=== PATIENT | male | born 1980 | race Hispanic/Latino ===

== ENCOUNTER 2019-09-18 20:29 | Emergency (ER) | payer BC ==
[2019-09-18 20:40] VITALS: BP 142/88
[2019-09-18] MEDS ORDERED: CLINDAMYCIN 150 MG/ML VIAL 6 ML IM STA (21:23)
--- NOTE | 2019-09-18 21:36 | Emergency Department Report ---
- General Chief complaint: Extremity Injury, Upper Stated complaint: LEFT ELBOW RED Time Seen by Provider: 09/18/19 21:15 Source: patient Mode of arrival: Ambulatory Limitations: No Limitations - History of Present Illness Initial comments: 38-year-old male chronic IV drug use presents emerge department complaint planing of swelling pain and redness to his left arm again after injecting meth about 3 to 4 days ago. States that this is the first time he has had in the post injection reaction in the form of cellulitis or an abscess and has a reemergence after restarting utilization of his IV drugs 3 days ago. States has been in and out of treatment facilities all across the [facility] but unable to refrain from from the drug use. Currently has swelling redness and pain to the left antecubital fossa and pain is worse with palpation and range of motion there is no fever chills or sweats no chest pain or palpitation no shortness of breath numbness or tingling to his fingers and he does not have suspicion for any retained foreign bodies Quality: dull Consistency: constant Improves with: none Associated symptoms: denies other symptoms - Related Data Previous Rx's Medication Instructions Recorded Last Taken Type Clindamycin [Clindamycin CAP] 150 mg PO Q6HR #40 capsule 09/18/19 Unknown Rx Allergies Allergy/AdvReac Type Severity Reaction Status Date / Time No Known Allergies Allergy Unverified 09/18/19 20:40 Abscess Boil HPI - HPI Chief Complaint: Extremity Injury, Upper Stated Complaint: LEFT ELBOW RED Time Seen by Provider: 09/18/19 21:15 Home Medications: Previous Rx's Medication Instructions Recorded Last Taken Type Clindamycin [Clindamycin CAP] 150 mg PO Q6HR #40 capsule 09/18/19 Unknown Rx Allergies/Adverse Reactions: Allergies Allergy/AdvReac Type Severity Reaction Status Date / Time No Known Allergies Allergy Unverified 09/18/19 20:40 ED Review of Systems ROS: Stated complaint: LEFT ELBOW RED Other details as noted in HPI Comment: All other systems reviewed and negative ED Past Medical Hx - Past Medical History Previous Medical History?: No - Surgical History Past Surgical History?: No - Social History Smoking Status: Never Smoker Substance Use Type: Methamphetamines - Medications Home Medications: Home Medications Medication Instructions Recorded Confirmed Last Taken Type Clindamycin [Clindamycin CAP] 150 mg PO Q6HR #40 capsule 09/18/19 Unknown Rx ED Physical Exam - General Limitations: No Limitations General appearance: alert, in no apparent distress - Head Head exam: Present: atraumatic, normocephalic - Eye Eye exam: Present: normal appearance - ENT ENT exam: Present: mucous membranes moist - Neck Neck exam: Present: normal inspection, tenderness, full ROM - Respiratory Respiratory exam: Present: normal lung sounds bilaterally. Absent: respiratory distress - Cardiovascular Cardiovascular Exam: Present: regular rate, normal rhythm. Absent: systolic murmur, diastolic murmur, rubs, gallop - GI/Abdominal GI/Abdominal exam: Present: soft, normal bowel sounds - Rectal Rectal exam: Present: deferred - Extremities Exam Extremities exam: Present: normal inspection, tenderness, normal capillary refill - Expanded Upper Extremity Exam Left Elbow exam: Present: tenderness, swelling, erythema (To the antecubital fossa this adjacent to some previous old scarring from her from chronic injection into that region. Small painful fluctuant area suggestive of an abscess is noted.) Vascular: Present: normal capillary refill - Back Exam Back exam: Present: normal inspection - Neurological Exam Neurological exam: Present: alert, oriented X3 - Psychiatric Psychiatric exam: Present: normal affect, normal mood - Skin Skin exam: Present: warm, dry, intact, normal color. Absent: rash ED Course Vital Signs 09/18/19 20:33 Temperature 98.5 F Pulse Rate 91 H Respiratory 18 Rate Blood Pressure 142/88 O2 Sat by Pulse 97 Oximetry - Procedure Description Procedures done: Left then cubital fossa was prepped and draped in aseptic fashion. Anesthesia achieved with 1% lidocaine with no epinephrine. Number Leven blade was used to excise the wound making a 1.5 x 2 cm incision into the site with moderate purulent drainage evacuated. The wound was irrigated and expressed and dressed with no complications and the procedure was tolerated well. Critical care attestation.: If time is entered above; I have spent that time in minutes in the direct care of this critically ill patient, excluding procedure time. ED Disposition Clinical Impression: Abscess, Encounter for incision and drainage procedure, Cellulitis of arm, left, IV drug abuse Disposition: [id number] TO HOME OR SELFCARE Is pt being admited?: No Does the pt Need Aspirin: No Condition: Stable Instructions: Cellulitis (ED), Abscess Incision and Drainage (ED) Prescriptions: Clindamycin [Clindamycin CAP] 150 mg PO Q6HR #40 capsule Referrals: [facility] [Provider Group] - 3-5 Days
== END 2019-09-18 21:54 | disposition home or self-care (01) ==
LOC: ED 20:29
DX: L03.114 Cellulitis of left upper limb (principal); F15.10 Other stimulant abuse, uncomplicated; Z79.2 Long term (current) use of antibiotics
CPT/HCPCS: 96372

== ENCOUNTER 2020-03-03 17:38 | Emergency (ER) | payer BC ==
--- NOTE | 2020-03-03 18:29 | Event Note ---
ED Screening Note Date of service: 03/03/20 Time: 18:29 ED Screening Note: Patient complains of right forearm abscess after puncture wound 2 days ago Cellulitis noted with heart rate of 122 This initial assessment/diagnostic orders/clinical plan/treatment(s) is/are subject to change based on patients health status, clinical progression and re- assessment by fellow clinical providers in the ED. Further treatment and workup at subsequent clinical providers discretion. Patient/guardian urged not to elope from the ED as their condition may be serious if not clinically assessed and managed. Initial orders include: ACC Labs
[2020-03-03 19:08] LABS: Basophils % (Auto) 0.2 % (0.0-1.8); Eosinophils # (Auto) 0.3 K/mm3 (0.0-0.4); Eosinophils % (Auto) 2.6 % (0.0-4.3); Hematocrit 42.1 % (35.5-45.6); Hemoglobin 14.4 gm/dl (11.8-15.2); Lymphocytes # (Auto) 1.7 K/mm3 (1.2-5.4); Lymphocytes % (Auto) 14.8 % (13.4-35.0); Mean Corpuscular HGB Conc 34 % (32-34); Mean Corpuscular Volume 85 fl (84-94); Monocytes # (Auto) 1.1 K/mm3 (0.0-0.8); Monocytes % (Auto) 9.1 % (0.0-7.3); Platelet Count 236 K/mm3 (140-440); Red Blood Count 4.98 M/mm3 (3.65-5.03); Red Cell Distribution Width 13.2 % (13.2-15.2)
[2020-03-03 19:31] LABS: Alanine Aminotransferase 18 units/L (7-56); Albumin 4.6 g/dL (3.9-5); BUN/Creatinine Ratio 21; Blood Urea Nitrogen 17 mg/dL (9-20); Calcium 9.1 mg/dL (8.4-10.2); Hemolysis Index 8
[2020-03-04] MEDS ORDERED: SULFAMETHOXAZOLE/TRIMETHOPRIM 800/160MG DS TAB PO ONE (00:15)
[2020-03-04] MEDS ORDERED: ONDANSETRON 4 MG/2 ML INJ IV ONE (00:15)
[2020-03-04] MEDS ORDERED: KETOROLAC 30 MG/1 ML INJ IV ONE (00:15)
[2020-03-04] MEDS ORDERED: LIDOCAINE (1%) 10 MG/1 ML VIAL 20 ML MDV INFILTRATI ONE (00:35)
--- NOTE | 2020-03-04 03:27 | Emergency Department Report ---
Upper Extremity - [facility] Chief Complaint: Extremity Injury, Upper Stated Complaint: INFECTION Time Seen by Provider: 03/03/20 18:28 Upper Extremity: Right Forearm (right forearm puncture wound with purulent discharge) Occurred When: 2 Days Mechanism: Other (puncture wound of right AC and forearm with purulent discharge, erythematous rash) Symptoms: Yes Pain with Movement, Yes Swelling, Yes Laceration or Abrasion (Puncture wound with purulent discharge), No Deformity, No Limited Range of Movement, No Numbness, No Weakness, No Bruising/Ecchymosis Other History: Patient is a 39-year-old white male with a history of IV drug use who presents to the ED with complaint of acute onset persistent painful swollen erythematous maculopapular rash with open wound with thick purulent discharge on the right antecubital area for the last 2 days after allegedly and accidentally piercing his right antecubital area with a piece of wire 3 days ago. Patient states that in the last 12 hours, the pain, swelling and erythematous rash is worsened and now the open wound has take purulent discharge with malodorous smell. Patient denies dizziness, syncope, fever, chills, nausea, vomiting, cough, back pain, headache, abdominal pain, numbness and tingling or weakness of right arm, fall or heavy lifting. ED Review of Systems ROS: Stated complaint: INFECTION Other details as noted in HPI Constitutional: denies: chills, fever Eyes: denies: eye pain, eye discharge, vision change ENT: denies: ear pain, throat pain Respiratory: denies: cough, shortness of breath, wheezing Cardiovascular: denies: chest pain, palpitations Endocrine: no symptoms reported Gastrointestinal: denies: abdominal pain, nausea, diarrhea Genitourinary: denies: urgency, dysuria Musculoskeletal: joint swelling, arthralgia (Right pain due to erythematous maculopapular rash and (showed with thick purulent discharge), myalgia. denies: back pain Skin: rash (Swollen, erythematous, painful maculopapular rash around an open puncture wound with thick purulent discharge on right antecubital area), change in color. denies: lesions Neurological: denies: headache, weakness, paresthesias Psychiatric: denies: anxiety, depression Hematological/Lymphatic: denies: easy bleeding, easy bruising ED Past Medical Hx - Past Medical History Previous Medical History?: No - Surgical History Past Surgical History?: No Additional Surgical History: Jaw repair 2003 - Social History Smoking Status: Never Smoker Substance Use Type: Methamphetamines - Medications Home Medications: Home Medications Medication Instructions Recorded Confirmed Last Taken Type Clindamycin [Clindamycin CAP] 150 mg PO Q6HR #40 capsule 09/18/19 Unknown Rx Clindamycin [Clindamycin CAP] 300 mg PO Q8HR #60 capsule 03/04/20 Unknown Rx Ibuprofen [Motrin] 800 mg PO Q8HR PRN #30 tablet 03/04/20 Unknown Rx Sulfamethoxazole/Trimethoprim 1 each PO Q12H #20 tablet 03/04/20 Unknown Rx [Bactrim DS TAB] Upper Extremity Exam - Exam General: Vital signs noted. No distress. Alert and acting appropriately. Head and Torso: No HEENT Abnormality, No Neck Tenderness, No Chest/Lungs Abnormality, No Abdominal Tenderness, No Back Tenderness Shoulder Exam: Yes Normal Range of Motion in Shoulder, No Shoulder Tenderness, No Clavicle Tenderness, No Shoulder Deformity, No AC Joint Tenderness Arm Exam: No Arm/Humerus Tenderness, No Arm Deformity Elbow: Yes Elbow Tenderness (Due to open wound right antecubital area with thick purulent discharge and erythematous maculopapular rash with swelling), Yes Normal Range of Motion in Elbow, No Elbow Deformity Forearm: Yes Forearm Tenderness (Swelling, severely tender right forearm with a small puncture wound with thick purulent discharge around the right antecubital area), No Forearm Deformity, No Pain with Pronation, No Pain with Supination Wrist: Yes Normal ROM in Wrist, No Wrist Tenderness, No Wrist Deformity, No Snuffbox Tenderness, No Pain with Axial Thumb Compression Hand: Yes Normal ROM in Digit(s), No Hand Tenderness, No Hand Deformity, No Digit Tenderness, No Digit(s) Deformity, No Tendon Dysfunction CMS Exam: Yes Broken Skin (Small puncture wound on right antecubital area with thick purulent discharge and swelling, tender with erythematous maculopapular rash), No Normal Distal Pulses, No Normal Capillary Refill, No Normal Distal Sensation ED Course Vital Signs 03/03/20 18:22 Temperature 98.2 F Pulse Rate 122 H Respiratory 16 Rate Blood Pressure 122/92 [Left] O2 Sat by Pulse 97 Oximetry - I & D Right Arm Type of Procedure: Simple Site: Right forearm at the AC area Blade Size: 11 I & D Procedure: betadine prep, sterile drapes applied, sterile dressing applied, gauze wick placed Progress: Patient tolerated the procedure well. The wound was cleaned thoroughly and locally anesthetized with lidocaine 1% solution. Wound was then debrided t horoughly and packed with iodoform gauze. The wound was then dressed appropriately and the patient was discharged home on pain medications and antibiotics and was advised to return to the ED immediately if symptoms get worse, otherwise follow-up with his primary care physician in 7 to 10 days for r eevaluation. ED Medical Decision Making - Lab Data Result diagrams: 03/03/20 18:41 03/03/20 18:41 - Medical Decision Making This is a 39-year-old white male with a history of IV drug use who presents to the ED with complaint of acute onset persistent painful swollen erythematous maculopapular rash with open wound with thick purulent discharge on the right antecubital area for the last 2 days after allegedly and accidentally piercing his right antecubital area with a piece of wire 3 days ago. Patient states that in the last 12 hours, the pain, swelling and erythematous rash is worsened and now the open wound has take purulent discharge with malodorous smell. In the ED, patient is alert and oriented x3 and is not in distress but appears to be in pain, is afebrile but tachycardic and anxious. Lab test results were reviewed and showed acute leukocytosis of 11,400. The rest of the lab test results were nonactionable. Patient received pain medications in the ED, also treated with normal saline 1 L IV bolus x1 p.o. x1, clindamycin 900 mg IV x1 and Bactrim DS p.o. x1. The wound was cleaned and debrided with normal saline solution. The area was locally anesthetized with lidocaine 1% solution. Wound was then incised further and drainage completely and clindamycin 6 hours and an iodoform gauze used to pack the wound. The wound was then dressed appropriately and the patient was discharged home on pain medications and oral antibiotics. On reevaluation, patient's pain is well controlled medications, tachycardia also resolved with medications. Patient was advised return to the ED immediately if symptoms get worse, otherwise follow-up with his primary care physician in 7 to 10 days for reevaluation. - Differential Diagnosis cellulitis; abscess; folliculitis; wound infection Critical care attestation.: If time is entered above; I have spent that time in minutes in the direct care of this critically ill patient, excluding procedure time. ED Disposition Clinical Impression: Cutaneous abscess of right upper extremity, Cellulitis of right forearm Disposition: TO HOME OR SELFCARE Is pt being admited?: No Does the pt Need Aspirin: No Condition: Stable Instructions: Skin Abscess, [id number], Cellulitis, Adult, [id number] Additional Instructions: Take medications with food, drink plenty of fluids and follow-up with your primary care physician in 7 to 10 days for reevaluation. Return to the ED immediately if symptoms get worse. Prescriptions: Sulfamethoxazole/Trimethoprim [Bactrim DS TAB] 1 each PO Q12H #20 tablet Clindamycin [Clindamycin CAP] 300 mg PO Q8HR #60 capsule Ibuprofen [Motrin] 800 mg PO Q8HR PRN #30 tablet PRN Reason: Pain , Severe (7-10) Referrals: [facility] [Provider Group] - 7-10 days Time of Disposition: 03:31 Print Language: CITIZEN OF [place]
[2020-03-04 05:51] VITALS: BP 132/81
== END 2020-03-04 05:31 | disposition home or self-care (01) ==
LOC: ED 17:38
DX: L02.413 Cutaneous abscess of right upper limb (principal); L03.113 Cellulitis of right upper limb; Z98.890 Other specified postprocedural states; Z79.1 Long term (current) use of non-steroidal anti-inflammatories (NSAID); Z79.2 Long term (current) use of antibiotics; Z79.899 Other long term (current) drug therapy
CPT/HCPCS: 10060; 36415; 80053; 85025; 96365; 96375; 99283; J1885; J2405